=== PATIENT | female | born 1950 | race Caucasian/White ===

== ENCOUNTER 2022-10-22 09:14 | Emergency (ER) | payer OTHER, BC ==
[~2022-10-22] VITALS: Ht 154.9 cm; Wt 80.3 kg
[2022-10-22] MEDS ORDERED: BENICAR20 MG PO (09:30)
[2022-10-22] MEDS ORDERED: CHILDREN'S ASPI81 MG PO (09:30)
== END 2022-10-22 12:51 ==
LOC: ER 09:14
DX: B34.9 Viral infection, unspecified (principal); I10 Essential (primary) hypertension; Z88.0 Allergy status to penicillin; Z88.2 Allergy status to sulfonamides; Z88.8 Allergy status to other drugs, medicaments and biological substances